=== PATIENT | male | born 1990 | race Asian ===

== ENCOUNTER 2017-07-13 17:50 | Emergency (ER) | payer SELFPAY ==
[2017-07-13 20:24] LABS: HEMATOCRIT 44.8 % (41.0-60); HEMOGLOBIN 14.7 gm/dL (12-16); LYMPHOCYTE ABSOLUTE 0.7 Th/cmm (1.5-3.0); MEAN CELL VOLUME 89.8 fl (80-99); MEAN CORPUSCULAR HEMOGLOBIN 29.5 pg (26.0-30.0); MEAN CORPUSCULAR HGB CONC 32.9 pg (28.0-36.0); MEAN PLATELET VOLUME 7.8 fl; MONOCYTE ABSOLUTE 0.6 Th/cmm (0.3-1.0); NEUTROPHILE ABSOLUTE 1.3 Th/cmm (1.8-8.0); PLATELET COUNT 151 Th/cmm (150-400); RED BLOOD COUNT 4.99 Mil/cmm (4.30-5.70); RED CELL DISTRIBUTION WIDTH 12.2 % (11.5-20.0)
[2017-07-13 20:40] LABS: WHITE BLOOD COUNT 2.6 Th/cmm (4.8-10.8)
[2017-07-13 20:46] LABS: ALB/GLOB RATIO 1.9 (1.0-1.8); ALBUMIN 4.5 gm/dL (4.2-5.5); ALKALINE PHOSPHATASE 55 U/L (34-104); ANION GAP 12.8 (7.0-16.0); BILIRUBIN,TOTAL 0.6 mg/dL (0.3-1.0); BUN - UREA NITROGEN 18 mg/dL (7-25); CHLORIDE 103 mEq/L (98-107); GFR AFRICAN-AMERICAN > 60.0 ml/min (>90); GFR NON AFRICAN-AMERICAN > 60.0 ml/min; GLUCOSE 100 mg/dL (70-105); POTASSIUM SERUM 3.8 mEq/L (3.5-5.1); SGOT 21 U/L (13-39); SGPT/ALT 20 U/L (7-52); SODIUM SERUM 136 mEq/L (136-145); TOTAL PROTEIN,SERUM 6.9 gm/dL (6.0-8.3)
[2017-07-13] MEDS ORDERED: Piperacillin Sodium/Tazobact 3.375 gm Vial IV ONE (21:21)
[2017-07-13 21:22] LABS: BAND NEUTROPHILE 2 % (0-10); NEUTROPHILS 58 % (40-80)
[2017-07-13 21:23] LABS: LYMPHOCYTE 22 % (20-50); MONOCYTE 18 % (2-10)
--- NOTE | 2017-07-13 22:56 | ED Physician Chart ---
ED Chief Complaint/HPI - Patient Information Date Seen:: 07/13/17 Time Seen:: 21:00 Chief Complaint:: Right hand pain and swelling History of Present Illness:: 26 yo male developed pain and swelling in right hand for 2 days. He denied fever or chills. The patient worked in a [employer] and denied trauma. Allergies:: Allergies Allergy/AdvReac Type Severity Reaction Status Date / Time No Known Allergies Allergy Verified 07/13/17 17:56 Vitals:: Vital Signs - 8 hr 07/13/17 17:57 Temp 98.3 F HR 90 RR 18 BP 115/67 O2 Sat % 95 ED Review of Systems - Review of Systems General/Constitutional: No fever Skin: Skin lesions Head: No headache Eyes: No loss of vision ENT: No earache Neck: No neck pain Cardio Vascular: No chest pain Pulmonary: No SOB GI: No nausea, No vomiting Musculoskeletal: Other (right hand pain) ED Past Medical History - Past Medical History Past Medical History: No significant medical hx Social History: Non Smoker, No Alcohol, No Drug Use Surgical History: None ED Physical Exam - Physical Examination General/Constitutional: Awake Head: Atraumatic Eyes: PERRL ENMT: Nasal exam nl Neck: No nuchal rigidity Respiratory: Clear to Auscultation Cardio Vascular: RRR, No murmur, gallop, rubs, NL S1 S2 GI: No tenderness/rebounding/guarding Other Extremities comments:: Right hand diffusely swelling and tender, with mild erythema. All joints full ROM Neuro/Psych: No focal deficits ED Labs/Radiology/EKG Results - Lab Results Results: Laboratory Tests 07/13/17 07/13/17 07/13/17 20:18 20:18 20:18 WBC 2.6 L RBC 4.99 Hgb 14.7 Hct 44.8 MCV 89.8 MCH 29.5 MCHC Differential 32.9 RDW 12.2 Plt Count 151 MPV 7.8 Band Neutrophils % 2 Neutrophils (Manual) 58 Lymphocytes 22 Monocytes 18 H Sodium 136 Potassium 3.8 Chloride 103 Carbon Dioxide 24.0 Anion Gap 12.8 BUN 18 Creatinine 1.0 Est GFR ( Amer) > 60.0 Est GFR (Non-Af Amer) > 60.0 BUN/Creatinine Ratio 18.0 Glucose 100 Whole Bld Lactic Acid 0.51 L Calcium 9.0 Total Bilirubin 0.6 AST 21 ALT 20 Alkaline Phosphatase 55 Total Protein 6.9 Albumin 4.5 Globulin 2.4 Albumin/Globulin Ratio 1.9 H ED Assessment - Assessment General Assessment: Right hand cellulitis Leukopenia Assessment/Comments:: CBC, CMP Vancomycin IV Zosyn IV D/c home Keflex 500mg PO tid F/u PCP or return to ER if symptoms worsen ED Septic Shock - . Is Septic Shock (SBP<90, OR Lactate>4 mmol\L) present?: No - <6hrs of presentation: Vital Signs: Vital Signs - 8 hr 07/13/17 17:57 Temp 98.3 F HR 90 RR 18 BP 115/67 O2 Sat % 95 ED Reassessment (Disposition) - Reassessment Reassessment Condition:: Improved - Patient Disposition Discharge/Transfer:: Home ED Discharge Plan - Patient Disposition Admit/Discharge/Transfer: PT DISCHARGED HOME Prescriptions: Cephalexin [Keflex] 500 mg PO TID #30 cap Instructions: Cellulitis, Cellulitis, [id number] Additional Instructions: FILL YOUR PRESCRIPTION AND TAKE IT DIRECTED. F/U WITH YOUR REGULAR DOCTOR THIS WEEK. Forms: Work Release Form
== END 2017-07-13 23:59 | disposition home or self-care (01) ==
LOC: ER 17:50
DX: L03.113 Cellulitis of right upper limb (principal); D72.819 Decreased white blood cell count, unspecified
CPT/HCPCS: 99284; 96365; 96368; 36415; 83605; 85007; 85027; 80053; 87040; J2543; J3370; Z7502